=== PATIENT | male | born 1945 | race Caucasian/White ===

== ENCOUNTER → 2021-09-18 11:11 | Outpatient (BNVA) | payer MEDICARE, OTHER, SELFPAY | PROVIDERS: PCP Internal Medicine; Referring Provider Internal Medicine; Visit Provider Internal Medicine | DX: E87.1 Hypo-osmolality and hyponatremia (principal); R41.0 Disorientation, unspecified; Z87.891 Personal history of nicotine dependence | CPT/HCPCS: 99204 ==